=== PATIENT | male | born 1975 | race Caucasian/White ===

== ENCOUNTER → 2017-09-12 | Outpatient (CLI) | payer OTHER ==
[2017-09-12 10:19] LABS: Basophils % (A) 0 %; Eosinophils # (A) 0.5 k/uL (0-0.7); Eosinophils % (A) 6 %; HCT 49.2 % (39.0-53.0); HGB 16.3 gm/dL (13.0-17.5); Lymphocytes # (A) 1.8 k/uL (1.0-4.8); Lymphocytes % (A) 21 %; MCH 32.1 pg (25.0-35.0); MCHC 33.2 g/dL (31.0-37.0); MCV 96.8 fL (80.0-100.0); Mean Platelet Volume 6.8; Monocytes # (A) 0.5 k/uL (0-1.0); Monocytes % (A) 6 %; Neutrophils # (A) 5.5 k/uL (1.3-7.7); Neutrophils % (A) 64 %; Platelet Count 207 k/uL (150-450); RBC 5.08 m/uL (4.30-5.90); RDW 12.3 % (11.5-15.5); WBC 8.5 k/uL (3.8-10.6)
[2017-09-12 10:44] LABS: ALT 41 U/L (21-72); AST 32 U/L (17-59); Albumin 4.8 g/dL (3.5-5.0); Alkaline Phosphatase 103 U/L (38-126); Anion Gap 9 mmol/L; Blood Urea Nitrogen 10 mg/dL (9-20); Calcium 9.9 mg/dL (8.4-10.2); Carbon Dioxide 27 mmol/L (22-30); Chloride 103 mmol/L (98-107); Cholesterol 261 mg/dL (<200); Glucose 93 mg/dL (74-99); HDL Cholesterol 94 mg/dL (40-60); LDL Cholesterol,Calculated 153 mg/dL (0-99); Potassium 4.3 mmol/L (3.5-5.1); Sodium 139 mmol/L (137-145); Total Bilirubin 1.7 mg/dL (0.2-1.3); Total Protein 7.5 g/dL (6.3-8.2); Triglycerides 71 mg/dL (<150)
[2017-09-12 17:23] LABS: Vitamin D 25 Hydroxy 32.5 ng/mL (30.0-100.0)
[2017-09-12 20:15] LABS: Folate, Serum 13.9 ng/mL
[2017-09-12 20:19] LABS: Hemoglobin A1C 5.2 % (4.0-6.0)
== END | disposition home or self-care (01) ==
LOC: LABWHC1 09:54
PROVIDERS: ATTEND Nurse Practitioner Family
DX: R01.1 Cardiac murmur, unspecified (principal); F17.200 Nicotine dependence, unspecified, uncomplicated; Z82.49 Family history of ischemic heart disease and other diseases of the circulatory system
CPT/HCPCS: 36415; 80053; 80061; 82306; 82607; 82746; 83036; 84443; 85025

== ENCOUNTER → 2017-09-25 | Outpatient (CLI) | payer OTHER ==
--- NOTE | 2017-09-26 07:20 | ECHOF ---
Referral Reason:R01.1 Systolic Murmur MEASUREMENTS -------- HEIGHT: 182.9 cm WEIGHT: 85.7 kg BP: 165/88 RVIDd: 2.4 cm (< 3.3) IVSd: 1.0 cm (0.6 - 1.1) LVIDd: 5.2 cm (3.9 - 5.3) LVPWd: 1.0 cm (0.6 - 1.1) IVSs: 1.4 cm LVIDs: 3.6 cm LVPWs: 1.6 cm LA Diam: 3.6 cm (2.7 - 3.8) Ao Diam: 3.6 cm (2.0 - 3.7) AV Cusp: 2.3 cm (1.5 - 2.6) MV EXCURSION: 22.777 mm (> 18.000) MV EF SLOPE: 235 mm/s (70 - 150) EPSS: 0.5 cm MV E Zechariah: 0.84 m/s MV DecT: 264 ms MV A Zechariah: 0.58 m/s MV E/A Ratio: 1.44 RAP: 5.00 mmHg RVSP: 23.58 mmHg FINDINGS -------- Sinus rhythm. This was a technically excellent study. The left ventricular size is normal. Left ventricular wall thickness is normal. Overall left vent ricular systolic function is normal with, an EF between 60 - 65 %. The right ventricle is normal in size. The left atrial size is normal. The right atrium is normal in size. The aortic valve is trileaflet and appears structurally normal. Trace amount of aortic regurgitatio n. There is trace mitral regurgitation. Mild tricuspid regurgitation present. Right ventricular systolic pressure is normal at < 35 mmHg. There is no pulmonic regurgitation present. The aortic root size is normal. Normal inferior vena cava with normal inspiratory collapse consistent with estimated right atrial pre ssure of 5 mmHg. There is no pericardial effusion. CONCLUSIONS -------- 1. Sinus rhythm. 2. This was a technically excellent study. 3. The left ventricular size is normal. 4. Left ventricular wall thickness is normal. 5. Overall left ventricular systolic function is normal with, an EF between 60 - 65 %. 6. The right ventricle is normal in size. 7. The left atrial size is normal. 8. The right atrium is normal in size. 9. The aortic valve is trileaflet and appears structurally normal. 10. Trace amount of aortic regurgitation. 11. There is trace mitral regurgitation. 12. Mild tricuspid regurgitation present. 13. Right ventricular systolic pressure is normal at < 35 mmHg. 14. There is no pulmonic regurgitation present. 15. The aortic root size is normal. 16. Normal inferior vena cava with normal inspiratory collapse consistent with estimated right atrial pressure of 5 mmHg. 17. There is no pericardial effusion. ETHICS MANAGER: Caitlin Raymundo RDCS
== END ==
LOC: RADECHMAIN 14:46
PROVIDERS: ATTEND Family Medicine
DX: I08.1 Rheumatic disorders of both mitral and tricuspid valves (principal)
CPT/HCPCS: 93306

== ENCOUNTER 2018-05-11 17:46 | Emergency (ER) | payer OTHER ==
[2018-05-11 19:17] VITALS: BP 132/87; PULSE 88; RESP 18; TEMP 98.3
--- NOTE | 2018-05-11 20:43 | ED ---
General Adult HPI - General Chief complaint: Skin/Abscess/Foreign Body Stated complaint: Rash on Rt leg Time Seen by Provider: 05/11/18 19:32 Source: patient, RN notes reviewed, old records reviewed Mode of arrival: ambulatory Limitations: no limitations - History of Present Illness Initial comments: 43-year-old male patient upper and past medical history presents ED after encountering a painful rash on his right knee. Patient reports that he wore a new pair of pants that rubbed on the posterior, popliteal aspect of his right knee causing a red erythematous painful rash. Patient states that symptoms have been present for approximately 2 days. Patient denies any other complaints. Patient denies chest pain, shortness breath, abdominal pain, nausea vomiting diarrhea, fevers chills. Systemic: Pt denies fatigue, myalgia, fever/chills. Pt denies weakness, night sweats, weight loss. Neuro: Pt denies headache, visual disturbances, syncope or pre-syncope. HEENT: Pt denies ocular discharge or irritation, otalgia, rhinorrhea, pharyngitis or notable lymphadenopathy. Cardiopulmonary: Pt denies chest pain, SOB, heart palpitations, dyspnea on exert ion. Abdominal/GI: Pt denies abdominal pain, n/v/d. : Pt denies dysuria, burning w/ urination, frequency/urgency. Denies new onset urinary or bowel incontinence. MSK: Pt denies myalgia, loss of strength or function in extremities. Neuro: Pt denies new onset weakness, paresthesias. - Related Data Previous Rx's Medication Instructions Recorded Albuterol Inhaler [Ventolin Hfa 1 - 2 puff INHALATION Q4-6H PRN #1 08/28/14 Inhaler] inhaler predniSONE 50 mg PO DAILY #5 tab 08/28/14 Clotrimazole/Betamethasone Dip 1 applic TOPICAL Q12HR 7 Days #1 05/11/18 [Lotrisone Cream] bottle Allergies Allergy/AdvReac Type Severity Reaction Status Date / Time acetaminophen [From Vicodin] Allergy Rash/Hives Verified 05/11/18 19:17 hydrocodone bitartrate Allergy Rash/Hives Verified 05/11/18 19:17 [From Vicodin] Penicillins Allergy Rash/Hives Verified 05/11/18 19:17 Review of Systems ROS Statement: Those systems with pertinent positive or pertinent negative responses have been documented in the HPI. ROS Other: All systems not noted in ROS Statement are negative. Past Medical History Past Medical History: No Reported History History of Any Multi-Drug Resistant Organisms: MRSA Date of last positivie culture/infection: 2001 MDRO Source:: left axilla Past Surgical History: No Surgical Hx Reported Past Psychological History: No Psychological Hx Reported Smoking Status: Current every day smoker Past Alcohol Use History: Occasional Past Drug Use History: None Reported General Exam - General Exam Comments Initial Comments: Constitutional: NAD, AOX3, Pt has pleasant affect. HEENT: NC/AT, trachea midline, neck supple, no lymphadenopathy. Posterior pharynx non erythematous, without exudates. External ears appear normal, without discharge. Mucous membranes moist. Eyes PERRLA, EOM intact. There is no scleral icterus. No pallor noted. Cardiopulmonary: RRR, no murmurs, rubs or gallops, no JVD noted. Lungs CTAB in anterior and posterior garcia. No peripheral edema. Abdominal exam: Abdomen soft and non-distended. Abdomen non-tender to palpation in all 4 quadrants. Bowel sounds active in LLQ. No hepatosplenomegaly. No ecchymosis Neuro: CN II-XII grossly intact. No nuchal rigidity. MSK: No posterior calf tenderness bilaterally, homans sign negative bilaterally. Posterior tibialis and radial pulse +2 bilaterally. Sensation intact in upper and lower extremities. Full active ROM in upper and lower extremities, 5/5 stregnth. Derm: Erythematous, mildly tender rash noted on posterior aspect of R knee. Limitations: no limitations Course Vital Signs 05/11/18 19:15 Temperature 98.3 F Pulse Rate 88 Respiratory 18 Rate Blood Pressure 132/87 O2 Sat by Pulse 99 Oximetry Medical Decision Making - Medical Decision Making 43-year-old male patient upper and past medical history presents ED after encountering a painful rash on his right knee. Patient reports that he wore a new pair of pants that rubbed on the posterior, popliteal aspect of his right knee causing a red erythematous painful rash. Patient states that symptoms have been present for approximately 2 days. Patient denies any other complaints. Patient denies chest pain, shortness breath, abdominal pain, nausea vomiting diarrhea, fevers chills. Pt VSS, afebrile. Physical exam displayed: Erythematous, mildly tender rash noted on posterior aspect of R knee. Etiology of rash is likely abrasion vs contact dermatitis. Pt to be rx lotrisone cream to use for for 1 week. Pt to f/u with PCP in 1-2 days. Pt to return to ER if conditions worsen in anyway. Case discussed with Dr. Marie. Disposition Clinical Impression: Contact dermatitis Disposition: HOME SELF-CARE Condition: Stable Instructions (If sedation given, give patient instructions): Contact Dermatitis (ED) Additional Instructions: Patient to adhere to previously discussed treatment plan and will take medication(s) as directed. Patient to follow up with PCP in 1-2 days. Patient to return to ED if symptoms do not improve. Please use daily application Lotrisone cream twice a day for 1 week. Please follow-up with primary care provider in 1-2 days. Please return to ER if condition worsens or new symptoms develop. Prescriptions: Clotrimazole/Betamethasone Dip [Lotrisone Cream] 1 applic TOPICAL Q12HR 7 Days #1 bottle Is patient prescribed a controlled substance at d/c from ED?: No Referrals: Candis Joseph FNPBC [Primary Care Provider] - 1-2 days
== END 2018-05-11 20:51 | disposition home or self-care (01) ==
LOC: EC 17:46
DX: L25.9 Unspecified contact dermatitis, unspecified cause (principal); F17.200 Nicotine dependence, unspecified, uncomplicated; Z88.0 Allergy status to penicillin; Z88.5 Allergy status to narcotic agent; Z88.6 Allergy status to analgesic agent; Z86.14 Personal history of Methicillin resistant Staphylococcus aureus infection
CPT/HCPCS: 99283

== ENCOUNTER 2018-06-03 20:41 | Emergency (ER) | payer OTHER ==
[2018-06-03 20:44] VITALS: TEMP 98.2
[2018-06-03] MEDS ORDERED: methylPREDNISolone SOD SUCCI 125 MG/2 ML VIAL IV STA (21:52)
[2018-06-03] MEDS ORDERED: FAMOTIDINE 20 MG/2 ML VIAL IV STA (21:52)
[2018-06-03] MEDS ORDERED: diphenhydrAMINE 50 MG/ML 1 ML VIAL IVP STA (21:52)
--- NOTE | 2018-06-03 22:22 | ED ---
General Adult HPI - General Source: patient, RN notes reviewed, old records reviewed Mode of arrival: ambulatory Limitations: no limitations <Leonidas Corona - Last Filed: 06/03/18 22:35> <Umm Bedolla - Last Filed: 06/04/18 22:07> - General Chief complaint: Skin/Abscess/Foreign Body Stated complaint: Rash Time Seen by Provider: 06/03/18 21:42 - History of Present Illness Initial comments: 43-year-old male patient with passed medical history of prior contact dermatitis presents to ED with rash for 2 days. Patient reports that he recently changed his body wash. Patient reports that the data EKG displayed while she began to develop a erythematous, pruritic, papular rash on his torso and back. Patient states that he has taken 1 or 2 Benadryl for this which has provided some relief. Patient has any other complaints. Patient denies any difficulty breathing, rash on face or mucosal surfaces, rash on palmar soles, nausea vomiting diarrhea, abdominal pain, chest pain. Systemic: Pt denies fatigue, myalgia, fever/chills. Pt denies weakness, night sweats, weight loss. Neuro: Pt denies headache, visual disturbances, syncope or pre-syncope. HEENT: Pt denies ocular discharge or irritation, otalgia, rhinorrhea, pharyngitis or notable lymphadenopathy. Cardiopulmonary: Pt denies chest pain, SOB, heart palpitations, dyspnea on exertion. Abdominal/GI: Pt denies abdominal pain, n/v/d. : Pt denies dysuria, burning w/ urination, frequency/urgency. Denies new onset urinary or bowel incontinence. MSK: Pt denies myalgia, loss of strength or function in extremities. Neuro: Pt denies new onset weakness, paresthesias. (Leonidas Corona) - Related Data Previous Rx's Medication Instructions Recorded Albuterol Inhaler [Ventolin Hfa 1 - 2 puff INHALATION Q4-6H PRN #1 08/28/14 Inhaler] inhaler predniSONE 50 mg PO DAILY #5 tab 08/28/14 Clotrimazole/Betamethasone Dip 1 applic TOPICAL Q12HR 7 Days #1 05/11/18 [Lotrisone Cream] bottle diphenhydrAMINE [Benadryl] 50 mg PO TID PRN #20 capsule 06/03/18 Allergies Allergy/AdvReac Type Severity Reaction Status Date / Time acetaminophen [From Vicodin] Allergy Rash/Hives Verified 06/03/18 20:45 amoxicillin Allergy Rash/Hives Verified 06/03/18 20:45 hydrocodone bitartrate Allergy Rash/Hives Verified 06/03/18 20:45 [From Vicodin] Penicillins Allergy Rash/Hives Verified 06/03/18 20:45 Review of Systems ROS Other: All systems not noted in ROS Statement are negative. <Leonidas Corona - Last Filed: 06/03/18 22:35> ROS Other: All systems not noted in ROS Statement are negative. <Umm Bedolla - Last Filed: 06/04/18 22:07> ROS Statement: Those systems with pertinent positive or pertinent negative responses have been documented in the HPI. Past Medical History Past Medical History: No Reported History History of Any Multi-Drug Resistant Organisms: MRSA Date of last positivie culture/infection: 2001 MDRO Source:: left axilla Past Surgical History: No Surgical Hx Reported Past Psychological History: No Psychological Hx Reported Smoking Status: Current every day smoker Past Alcohol Use History: Occasional Past Drug Use History: None Reported <Leonidas Corona - Last Filed: 06/03/18 22:35> General Exam Limitations: no limitations <Leonidas Corona - Last Filed: 06/03/18 22:35> - General Exam Comments Initial Comments: Constitutional: NAD, AOX3, Pt has pleasant affect. HEENT: NC/AT, trachea midline, neck supple, no lymphadenopathy. Posterior pharynx non erythematous, without exudates. External ears appear normal, without discharge. Mucous membranes moist. Eyes PERRLA, EOM intact. There is no scleral icterus. No pallor noted. Cardiopulmonary: RRR, no murmurs, rubs or gallops, no JVD noted. Lungs CTAB in anterior and posterior garcia. No peripheral edema. Abdominal exam: Abdomen soft and non-distended. Abdomen non-tender to palpation in all 4 quadrants. Bowel sounds active in LLQ. No hepatosplenomegaly. No ecchymosis Neuro: CN II-XII grossly intact. No nuchal rigidity. MSK: No posterior calf tenderness bilaterally, homans sign negative bilaterally. Posterior tibialis and radial pulse +2 bilaterally. Sensation intact in upper and lower extremities. Full active ROM in upper and lower extremities, 5/5 stregnth. Derm: Maculopapular rash noted on anterior and posterior torso. Spares palms and soles. Suh face mucosal surfaces. (Leonidas Corona) Course Vital Signs 06/03/18 06/03/18 20:42 22:26 Temperature 98.2 F Pulse Rate 98 78 Respiratory 20 18 Rate Blood Pressure 181/104 150/92 O2 Sat by Pulse 99 99 Oximetry Medical Decision Making <Leonidas Corona - Last Filed: 06/03/18 22:35> <Umm Bedolla - Last Filed: 06/04/18 22:07> - Medical Decision Making 43-year-old male patient with passed medical history of prior contact dermatitis presents to ED with rash for 2 days. Patient reports that he recently changed his body wash. Patient reports that the data EKG displayed while she began to develop a erythematous, pruritic, papular rash on his torso and back. Patient states that he has taken 1 or 2 Benadryl for this which has provided some relief. Patient has any other complaints. Patient denies any difficulty breathing, rash on face or mucosal surfaces, rash on palmar soles, nausea vomiting diarrhea, abdominal pain, chest pain. Pt VSS displayed mild hypertension. Physical exam displayed: Maculopapular rash noted on anterior and posterior torso. Spares palms and soles. Suh face mucosal surfaces. Pt dx with contact dermatitis. Pt to stop using soap. Pt was administered one dose of Benadryl, steroid, Pepcid. Patient to be discharged with prescription for Benadryl. Patient follow up with pcp in 1-2 days. Patient to return to ER if condition worsens in anyway. Case discussed with Dr. Bedolla. (Leonidas Corona) I was available for consultation in the emergency department. The history and physical exam were done by the midlevel provider. I was consulted for this patient's care. I reviewed the case with the midlevel provider and based on their presentation of the patient, I agree with the assessment, medical decision making and plan of care as documented. Chart was dictated using [employer] dictation software. Attempts were made to correct any dictation errors however some typographical errors may persist. (Umm Bedolla) Disposition Is patient prescribed a controlled substance at d/c from ED?: No <Leonidas Corona - Last Filed: 06/03/18 22:35> <Umm Bedolla - Last Filed: 06/04/18 22:07> Clinical Impression: Rash, Contact dermatitis Disposition: HOME SELF-CARE Condition: Stable Instructions (If sedation given, give patient instructions): Contact Dermatitis (ED) Additional Instructions: Patient to adhere to previously discussed treatment plan and will take medication(s) as directed. Patient to follow up with PCP in 1-2 days. Patient to return to ED if symptoms do not improve. please take Benadryl as needed for rash. Please stop using body wash. Please follow-up with primary care provider in 1-2 days. Prescriptions: diphenhydrAMINE [Benadryl] 50 mg PO TID PRN #20 capsule PRN Reason: rash Referrals: Ashlee Colin MD [Primary Care Provider] - 1-2 days
[2018-06-03 22:26] VITALS: BP 150/92; PULSE 78; RESP 18
== END 2018-06-03 22:45 | disposition home or self-care (01) ==
LOC: EC 20:41
DX: L25.9 Unspecified contact dermatitis, unspecified cause (principal); F17.200 Nicotine dependence, unspecified, uncomplicated; Z86.14 Personal history of Methicillin resistant Staphylococcus aureus infection; Z88.6 Allergy status to analgesic agent; Z88.5 Allergy status to narcotic agent; Z88.0 Allergy status to penicillin
CPT/HCPCS: 99283; 96374; 96375 ×2; J1200; J2930

== ENCOUNTER 2019-08-13 17:28 | Emergency (ER) | payer OTHER ==
--- NOTE | 2019-08-13 18:40 | XR ---
EXAMINATION TYPE: XR foot complete RT DATE OF EXAM: 08/13/2019 COMPARISON: NONE HISTORY: 44-year-old male stepped on a nail, puncture TECHNIQUE: 3 views FINDINGS: Bipartite fibular sesamoid. No acute fracture, subluxation, or dislocation seen. Os peroneum noted. S oft tissue swelling along the ball of the foot. No soft tissue air or retained radiopaque foreign bod y is clearly identified. IMPRESSION: Prominent soft tissue swelling along the ball of the foot. No retained radiopaque foreign body identi fied. No acute osseous abnormality seen.
[2019-08-13] MEDS ORDERED: DIPH,PERTUS(ACELL)TETVAC-LF 0.5 ML VIAL IM ONE (18:47)
[2019-08-13] MEDS ORDERED: CEPHALEXIN 500MG STARTER PACK 4 CAP BTL PO STA (18:48)
--- NOTE | 2019-08-13 18:48 | ED ---
Lower Extremity Injury HPI - General Chief Complaint: Extremity Injury, Lower Stated Complaint: stepped on nail Time Seen by Provider: 08/13/19 17:36 Source: patient Mode of arrival: ambulatory Limitations: no limitations - History of Present Illness Initial Comments: 44-year-old male presenting today for chief complaint of puncture wound to right foot that occurred today. States that he stepped on a nail that went through his right shoe and into the forefoot. HE states he cleaned the area well, but needed a tetanus. Patient states this occurred just prior to arrival. Denies DM. Beata additional complaints. Patient appears well on arrival no signs of acute distress. - Related Data Previous Rx's Medication Instructions Recorded Albuterol Inhaler (Mhu) [Ventolin 1 - 2 puff INHALATION Q4-6H PRN #1 08/28/14 Hfa Inhaler (Mhu)] inhaler predniSONE 50 mg PO DAILY #5 tab 08/28/14 Clotrimazole/Betamethasone Dip 1 applic TOPICAL Q12HR 7 Days #1 05/11/18 [Lotrisone Cream] bottle diphenhydrAMINE [Benadryl] 50 mg PO TID PRN #20 capsule 06/03/18 Cephalexin [Keflex] 500 mg PO Q6HR 5 Days #20 cap 08/13/19 Ciprofloxacin HCl 500 mg PO BID 5 Days #10 tab 08/13/19 Allergies Allergy/AdvReac Type Severity Reaction Status Date / Time acetaminophen [From Vicodin] Allergy Rash/Hives Verified 08/13/19 17:30 amoxicillin Allergy Rash/Hives Verified 08/13/19 17:30 hydrocodone bitartrate Allergy Rash/Hives Verified 08/13/19 17:30 [From Vicodin] Penicillins Allergy Rash/Hives Verified 08/13/19 17:30 Review of Systems ROS Statement: Those systems with pertinent positive or pertinent negative responses have been documented in the HPI. ROS Other: All systems not noted in ROS Statement are negative. Past Medical History Past Medical History: No Reported History History of Any Multi-Drug Resistant Organisms: MRSA Date of last positivie culture/infection: 2001 MDRO Source:: left axilla Past Surgical History: No Surgical Hx Reported Past Psychological History: No Psychological Hx Reported Smoking Status: Current every day smoker Past Alcohol Use History: Occasional Past Drug Use History: None Reported General Exam - General Exam Comments Initial Comments: General: The patient is awake and alert, in no distress Eye: Pupils are equal, round and reactive to light, extra-ocular movements are intact. No nystagmus. There is normal conjunctiva bilaterally. No signs of icterus. Musculoskeletal: Normal ROM, no tenderness. Strength 5/5. Sensation intact. DP pulses equal bilaterally 2+. Cannot identify the exact puncture but there is tenderness to palpation of forefoot. Neurological: A&O x 3. CN II-XII intact grossly, There are no obvious motor or sensory deficits. Coordination appears grossly intact. Speech is normal. Skin: Skin is warm and dry and no rashes or lesions are noted. Psychiatric: Cooperative, appropriate mood & affect, normal judgment. Limitations: no limitations Course Vital Signs 08/13/19 08/13/19 17:31 19:16 Temperature 98.9 F 98.1 F Pulse Rate 98 92 Respiratory 18 16 Rate Blood Pressure 111/62 116/68 O2 Sat by Pulse 97 98 Oximetry Medical Decision Making - Medical Decision Making 44yo male presenting to the ER today for cc of puncture wound right foot. Through soul of shoe. Discussed pseudomonas concern and black box warning with fluoroquinolones which are in adequate oral antibiotic to prevent pseudomonas infection. I discussed the risk of infection benefits versus risk of medical Louann. At this time patient elected to go forward with preventative medication and is aware of the cardiac/vascular/tendon side effects that could result in injury or as well as risk of infection and sepsis/> Patient discharged appearing well with keflex and ciprofloxacin preventative antibiotics for puncture would. Disposition Clinical Impression: Puncture wound of right foot Disposition: HOME SELF-CARE Condition: Good Instructions (If sedation given, give patient instructions): Puncture Wound (ED) Additional Instructions: Please use medication as discussed. Please follow-up with family doctor in the next 2 days. Please return to emergency room if the symptoms increase or worsen or for any other concerns. Prescriptions: Cephalexin [Keflex] 500 mg PO Q6HR 5 Days #20 cap Is patient prescribed a controlled substance at d/c from ED?: No Referrals: Ashlee Colin MD [Primary Care Provider] - 1-2 days Time of Disposition: 18:48
[2019-08-13 19:17] VITALS: BP 116/68; PULSE 92; RESP 16; TEMP 98.1
== END 2019-08-13 19:15 | disposition home or self-care (01) ==
LOC: EC 17:28
DX: S91.331A Puncture wound without foreign body, right foot, initial encounter (principal); F17.200 Nicotine dependence, unspecified, uncomplicated; Z23 Encounter for immunization; Z88.0 Allergy status to penicillin; Z88.5 Allergy status to narcotic agent; Z88.6 Allergy status to analgesic agent; W45.0XXA Nail entering through skin, initial encounter
CPT/HCPCS: 90471; 90715; 99283

== ENCOUNTER 2021-07-24 16:17 | Emergency (ER) | payer OTHER, BC ==
[2021-07-24 16:37] VITALS: BP 125/71; PULSE 81; RESP 20; TEMP 98.3
[2021-07-24] MEDS ORDERED: LIDOCAINE 1% INJ 10MG/ML (5 ML VIAL-PF) SQ ONE (17:12)
--- NOTE | 2021-07-24 18:29 | ED ---
General Adult HPI - General Chief complaint: Extremity Injury, Upper Stated complaint: Swollen Finger Time Seen by Provider: 07/24/21 17:03 Source: patient Mode of arrival: ambulatory Limitations: no limitations - History of Present Illness Initial comments: Patient is a 46-year-old male who presents for evaluation of finger swelling. Patient states he picked a hangnail of his left pointer finger yesterday and woke up with swelling and pain in the area today. Patient denies fever, chills, and other concerns. - Related Data Previous Rx's Medication Instructions Recorded Albuterol Inhaler (Mhu) [Ventolin 1 - 2 puff INHALATION Q4-6H PRN #1 08/28/14 Hfa Inhaler (Mhu)] inhaler predniSONE 50 mg PO DAILY #5 tab 08/28/14 Clotrimazole/Betamethasone Dip 1 applic TOPICAL Q12HR 7 Days #1 05/11/18 [Lotrisone Cream] bottle diphenhydrAMINE [Benadryl] 50 mg PO TID PRN #20 capsule 06/03/18 Cephalexin [Keflex] 500 mg PO Q6HR 5 Days #20 cap 08/13/19 Ciprofloxacin HCl 500 mg PO BID 5 Days #10 tab 08/13/19 Sulfamethox-Tmp 800-160Mg [Bactrim 1 each PO Q12HR 5 Days #10 tab 07/24/21 Ds] Allergies Allergy/AdvReac Type Severity Reaction Status Date / Time acetaminophen [From Vicodin] Allergy Rash/Hives Verified 07/24/21 16:36 amoxicillin Allergy Rash/Hives Verified 07/24/21 16:36 hydrocodone bitartrate Allergy Rash/Hives Verified 07/24/21 16:36 [From Vicodin] Penicillins Allergy Rash/Hives Verified 07/24/21 16:36 Review of Systems ROS Statement: Those systems with pertinent positive or pertinent negative responses have been documented in the HPI. ROS Other: All systems not noted in ROS Statement are negative. Past Medical History Past Medical History: No Reported History History of Any Multi-Drug Resistant Organisms: MRSA Date of last positivie culture/infection: 2001 MDRO Source:: left axilla Past Surgical History: No Surgical Hx Reported Past Psychological History: No Psychological Hx Reported Smoking Status: Current every day smoker Past Alcohol Use History: Occasional Past Drug Use History: None Reported General Exam Limitations: no limitations General appearance: alert, in no apparent distress Head exam: Present: atraumatic, normocephalic, normal inspection Eye exam: Present: normal appearance, PERRL, EOMI. Absent: scleral icterus, conjunctival injection, periorbital swelling Neck exam: Present: normal inspection, full ROM Respiratory exam: Present: normal lung sounds bilaterally. Absent: respiratory distress, wheezes, rales, rhonchi, stridor Cardiovascular Exam: Present: regular rate, normal rhythm, normal heart sounds. Absent: systolic murmur, diastolic murmur, rubs, gallop, clicks GI/Abdominal exam: Present: soft, normal bowel sounds. Absent: distended, tenderness, guarding, rebound, rigid Extremities exam: Present: other (left pointer finger: paronychia with fluctuance proximally and laterally. no induration ) Psychiatric exam: Present: normal affect, normal mood Skin exam: Present: warm, dry, intact, normal color. Absent: rash Course Vital Signs 07/24/21 16:35 Temperature 98.3 F Pulse Rate 81 Respiratory 20 Rate Blood Pressure 125/71 O2 Sat by Pulse 97 Oximetry Procedures - Incision & Drainage Site: other (Left pointer finger) Anesthetic Used: lidocaine 1% I&D Cleaning Method: Alcohol Wipe Scalpel Used: #11 I&D Drainage Obtained: Pus, Blood Patient Tolerated Procedure: well, no complications Medical Decision Making - Medical Decision Making This is a 46-year-old male who presents with swelling and pain of left pointer finger. Thorough history and examination were performed. Patient has paronychia with fluctuance over the lateral and proximal nail bed. The wound was cleaned thoroughly and abscess was drained successfully. Patient tolerated the procedure well without complication. Patient will be discharged with Keflex prescription. Wound education was provided. Patient was instructed to keep the dressing over the wound for continuous drainage with warm compress throughout the day. Return parameters discussed. Patient verbalizes understanding and is agreeable to this plan Dr. Marie is my attending. Disposition Clinical Impression: Paronychia, Abscess Disposition: HOME SELF-CARE Condition: Good Instructions (If sedation given, give patient instructions): Abscess (ED) Additional Instructions: Please take antibiotic as directed. Please keep wound covered for 5 days. You may uncover wound 4 times a day and apply warm compress for 10 minutes each session with gentle pressing of the area to increase drainage. Follow-up with primary care provider in one to 2 days. Return to the emergency department if you experience new, concerning, or worsening symptoms. Prescriptions: Sulfamethox-Tmp 800-160Mg [Bactrim Ds] 1 each PO Q12HR 5 Days #10 tab Is patient prescribed a controlled substance at d/c from ED?: No Referrals: Ashlee Colin MD [Primary Care Provider] - 1-2 days Time of Disposition: 18:29
== END 2021-07-24 18:45 | disposition home or self-care (01) ==
LOC: EC 16:17
DX: R22.31 Localized swelling, mass and lump, right upper limb (principal)

== ENCOUNTER 2023-09-05 13:13 | Emergency (ER) | payer OTHER ==
[2023-09-05 13:22] VITALS: RESP 18; TEMP 98
[2023-09-05] MEDS: IBUPROFEN 600 MG TAB PO STA (13:38)
[2023-09-05] MEDS: DIPH,PERTUS(ACELL)TETVAC-LF 0.5 ML VIAL IM ONE (13:39)
[2023-09-05] MEDS: TOPICAL SKIN ADHESIVE 1 EACH AMP TOPICAL ONE (13:39)
--- NOTE | 2023-09-05 13:42 | ED ---
Wound/Laceration HPI - General Chief Complaint: Wound/Laceration Stated Complaint: R leg injury Time Seen by Provider: 09/05/23 13:40 Source: patient, RN notes reviewed Mode of arrival: ambulatory Limitations: no limitations - History of Present Illness Initial Comments: 48 year old male presenting to the ER with a cheif complaint of laceration. Patient was building a deck and when lifting the deck to apply support screws the dock accidentally fell landing on his right escalera. Patient states he has a laceration to his right escalera. He states bleeding is controlled with a pressure wrap at this time. Tetanus status unknown. He denies any other injuries or complaints. - Related Data Previous Rx's Medication Instructions Recorded Albuterol Inhaler [Ventolin Hfa 1 - 2 puff INHALATION Q4-6H PRN #1 08/28/14 Inhaler] inhaler predniSONE 50 mg PO DAILY #5 tab 08/28/14 Clotrimazole/Betamethasone Dip 1 applic TOPICAL Q12HR 7 Days #1 05/11/18 [Lotrisone Cream] bottle diphenhydrAMINE [Benadryl] 50 mg PO TID PRN #20 capsule 06/03/18 Cephalexin [Keflex] 500 mg PO Q6HR 5 Days #20 cap 08/13/19 Ciprofloxacin HCl 500 mg PO BID 5 Days #10 tab 08/13/19 Sulfamethox-Tmp 800-160Mg [Bactrim 1 each PO Q12HR 5 Days #10 tab 07/24/21 Ds] Allergies Allergy/AdvReac Type Severity Reaction Status Date / Time acetaminophen [From Vicodin] Allergy Rash/Hives Verified 09/05/23 13:22 amoxicillin Allergy Rash/Hives Verified 09/05/23 13:22 hydrocodone bitartrate Allergy Rash/Hives Verified 09/05/23 13:22 [From Vicodin] Penicillins Allergy Rash/Hives Verified 09/05/23 13:22 Review of Systems ROS Statement: Those systems with pertinent positive or pertinent negative responses have been documented in the HPI. ROS Other: All systems not noted in ROS Statement are negative. Past Medical History Past Medical History: No Reported History History of Any Multi-Drug Resistant Organisms: MRSA Date of last positivie culture/infection: 2001 MDRO Source:: left axilla Past Surgical History: No Surgical Hx Reported Past Psychological History: No Psychological Hx Reported Smoking Status: Current every day smoker Past Alcohol Use History: Occasional Past Drug Use History: None Reported General Exam Limitations: no limitations General appearance: alert, in no apparent distress Respiratory exam: Present: normal lung sounds bilaterally. Absent: respiratory distress, wheezes, rales, rhonchi, stridor Cardiovascular Exam: Present: regular rate, normal rhythm, normal heart sounds. Absent: systolic murmur, diastolic murmur, rubs, gallop, clicks Extremities exam: Present: tenderness (Right distal escalera. There is a 1 cm abrasion to escalera. No active bleeding. Palpable PT and DP pulses. Sensation intact. Patient has full active range of motion.) Neurological exam: Present: alert, oriented X3, CN II-XII intact Skin exam: Present: warm, dry, intact, normal color. Absent: rash Course Vital Signs 09/05/23 09/05/23 13:20 14:21 Temperature 98 F Pulse Rate 80 78 Respiratory 18 18 Rate Blood Pressure 111/74 120/74 O2 Sat by Pulse 99 99 Oximetry Procedures - Laceration Laceration #1 Consent Obtained: verbal consent Indication: laceration Site: lower extremity Size (cm): 1 Description: linear Depth: simple, single layer Pre-repair: wound explored, irrigated extensively, deep structures intact Type of Sutures: other (dermal glue) Patient Tolerated Procedure: well Medical Decision Making - Medical Decision Making Was pt. sent in by a medical professional or institution ([facility] Solorio, [employer], urgent care, hospital, or fdc...) When possible be specific @ -No Did you speak to anyone other than the patient for history (EMS, parent, family, police, friend...)? What history was obtained from this source @ -No Did you review nursing and triage notes (agree or disagree)? Why? @ -I reviewed and agree with nursing and triage notes Were old charts reviewed (outside hosp., previous admission, EMS record, old EKG, old radiological studies, urgent care reports/EKG's, fdc records)? Report findings @ -No old charts were reviewed Differential Diagnosis (chest pain, altered mental status, abdominal pain women, abdominal pain men, vaginal bleeding, weakness, fever, dyspnea, syncope, headache, dizziness, GI bleed, back pain, seizure, CVA, palpatations, mental health, musculoskeletal)? @ -Differential Musculoskeletal: Muscular strain, contusion, ligament sprain, fracture, arthritis, septic arthritis, bursitis, cellulitis, muscle spasm, nerve compression, DVT, arterial occlusion, herpes zoster, electrolyte abnormality, tumor.... This is not meant to be in all inclusive list EKG interpreted by me (3pts min.). @ -None X-rays interpreted by me (1pt min.). @ -Right tib-fib x-rays interpreted by me negative for acute osseous process. CT interpreted by me (1pt min.). @ -None done U/S interpreted by me (1pt. min.). @ -None done What testing was considered but not performed or refused? (CT, X-rays, U/S, labs)? Why? @ -None What meds were considered but not given or refused? Why? @ -None Did you discuss the management of the patient with other professionals (professionals i.e. , PA, [employer], lab, RT, psych nurse, social media content manager, senior contract specialist, teacher, operations officer [employer], renal case manager)? Give summary @ -No Was smoking cessation discussed for >3mins.? @ -No Was critical care preformed (if so, how long)? @ -No Were there social determinants of health that impacted care today? How? (Homelessness, low income, unemployed, alcoholism, drug addiction, transportation, low edu. Level, literacy, decrease access to med. care, [facility], r ehab)? @ -No Was there de-escalation of care discussed even if they declined (Discuss DNR or withdrawal of care, Hospice)? DNR status @ -No What co-morbidities impacted this encounter? (DM, HTN, Smoking, COPD, CAD, Cancer, CVA, ARF, Chemo, Hep., AIDS, mental health diagnosis, sleep apnea, morbid obesity)? @ -None Was patient admitted / discharged? Hospital course, mention meds given and route, prescriptions, significant lab abnormalities, going to OR and other pertinent info. @ -Discharge. 48-year-old male presented to ER with a chief complaint of laceration. History and physical exam completed. Vitals stable. Patient in no signs of acute distress and nontoxic-appearing. There is a 1 cm superficial abrasion to right escalera. No active bleeding. Right lower extremity neurovascular intact. There is tenderness to tibia. No bruising, rashes present. Tetanus updated. X-rays completed negative for acute process. Patient received by mouth for pain control in the ER. Due to abrasion not mildly gaping dermal glue used to approximate edges. Procedure note above. Return parameters discussed. Patient discharged stable condition with follow-up to PCP. Patient verbally expressed understanding agreement care plan. Case discussed with ED attending, Dr. Marie. Undiagnosed new problem with uncertain prognosis? @ -No Drug Therapy requiring intensive monitoring for toxicity (Heparin, Nitro, Insulin, Cardizem)? @ -No Were any procedures done? @ -Yes Diagnosis/symptom? @ -Abrasion/bone contusion Acute, or Chronic, or Acute on Chronic? @ -Acute Uncomplicated (without systemic symptoms) or Complicated (systemic symptoms)? @ -Uncomplicated Side effects of treatment? @ -No Exacerbation, Progression, or Severe Exacerbation? @ -No Poses a threat to life or bodily function? How? (Chest pain, [place], GA, pneumonia, PE, COPD, DKA, ARF, appy, cholecystitis, CVA, Diverticulitis, Homicidal, Suicidal, threat to staff... and all critical care pts) @ -No - Radiology Data Radiology results: report reviewed, image reviewed Disposition Clinical Impression: Abrasion, Contusion of bone Disposition: HOME SELF-CARE Condition: Stable Instructions (If sedation given, give patient instructions): Foot Contusion (ED), Skin Adhesive Care (ED) Additional Instructions: You may take otc motrin for pain control. I recommend ice and rest. Follow-up with PCP. Return to the ER for any new or worsening symptoms. Is patient prescribed a controlled substance at d/c from ED?: No Referrals: None,Stated [Primary Care Provider] - 1-2 days Time of Disposition: 14:41
--- NOTE | 2023-09-05 14:00 | XR ---
EXAMINATION TYPE: XR tibia fibula RT DATE OF EXAM: 09/05/2023 1:44 PM CLINICAL INDICATION:Male, 48 years old with history of injury; COMPARISON: None TECHNIQUE: XR tibia fibula RT; tibia/fibula was examined in AP and lateral projections. FINDINGS: No evidence of any acute osseous pathology, joint dislocation, or soft tissue swelling is n oted. Skin laceration not well appreciated. IMPRESSION: 1. No evidence of acute fracture. 2. No radiopaque foreign body.
[2023-09-05 14:22] VITALS: BP 120/74; PULSE 78
== END 2023-09-05 14:22 | disposition home or self-care (01) ==
LOC: EC 13:13
DX: S81.811A Laceration without foreign body, right lower leg, initial encounter (principal); F17.200 Nicotine dependence, unspecified, uncomplicated; Z88.0 Allergy status to penicillin; Z88.5 Allergy status to narcotic agent; Z88.1 Allergy status to other antibiotic agents; Z88.8 Allergy status to other drugs, medicaments and biological substances; Z23 Encounter for immunization; W20.8XXA Other cause of strike by thrown, projected or falling object, initial encounter; Y93.89 Activity, other specified
CPT/HCPCS: 12001; 90471; 90715; 99283

== ENCOUNTER 2024-08-08 06:33 | Emergency (ER) | payer OTHER ==
[2024-08-08 06:36] VITALS: TEMP 98.2
--- NOTE | 2024-08-08 06:55 | ED ---
Skin/Abscess/FB HPI - General Chief complaint: Skin/Abscess/Foreign Body Stated complaint: Rash on Abdomen Time Seen by Provider: 08/08/24 06:38 Source: patient, RN notes reviewed Mode of arrival: ambulatory Limitations: no limitations - History of Present Illness Initial comments: This is a 51-year-old male who presents to the emergency department for an abdominal wall abscess. Patient states that this started out as a rash on his abdomen about a week ago. He originally went to [facility] and was started on antibiotics. Unsure which antibiotic he was started on. States that yesterday it began to break open and started draining. However, it is still very swollen and painful. Denies any fevers or chills. He does have a history of MRSA as well as prior abscesses that have required surgical drainage. MD complaint: abscess/boil - Related Data Previous Rx's Medication Instructions Recorded Albuterol Inhaler [Ventolin Hfa 1 - 2 puff INHALATION Q4-6H PRN #1 08/28/14 Inhaler] inhaler predniSONE 50 mg PO DAILY #5 tab 08/28/14 Clotrimazole/Betamethasone Dip 1 applic TOPICAL Q12HR 7 Days #1 05/11/18 [Lotrisone Cream] bottle diphenhydrAMINE [Benadryl] 50 mg PO TID PRN #20 capsule 06/03/18 Cephalexin [Keflex] 500 mg PO Q6HR 5 Days #20 cap 08/13/19 Ciprofloxacin HCl 500 mg PO BID 5 Days #10 tab 08/13/19 Sulfamethox-Tmp 800-160Mg [Bactrim 1 each PO Q12HR 5 Days #10 tab 07/24/21 Ds] Cephalexin [Keflex] 500 mg PO Q6HR 10 Days #40 cap 08/08/24 Ibuprofen [Motrin] 800 mg PO Q8H PRN #30 tab 08/08/24 Sulfamethox-Tmp 800-160Mg [Bactrim 1 tab PO Q12HR 10 Days #20 tab 08/08/24 DS 800-160 mg] Allergies Allergy/AdvReac Type Severity Reaction Status Date / Time acetaminophen [From Vicodin] Allergy Rash/Hives Verified 08/08/24 06:37 amoxicillin Allergy Rash/Hives Verified 08/08/24 06:37 hydrocodone bitartrate Allergy Rash/Hives Verified 08/08/24 06:37 [From Vicodin] Penicillins Allergy Rash/Hives Verified 08/08/24 06:37 Review of Systems ROS Statement: Those systems with pertinent positive or pertinent negative responses have been documented in the HPI. ROS Other: All systems not noted in ROS Statement are negative. Past Medical History Past Medical History: No Reported History History of Any Multi-Drug Resistant Organisms: MRSA Date of last positivie culture/infection: 2001 MDRO Source:: left axilla Past Surgical History: No Surgical Hx Reported Past Psychological History: No Psychological Hx Reported Smoking Status: Current every day smoker Past Alcohol Use History: Occasional Past Drug Use History: None Reported General Exam Limitations: no limitations General appearance: alert, in no apparent distress Head exam: Present: atraumatic, normocephalic, normal inspection Respiratory exam: Present: normal lung sounds bilaterally. Absent: respiratory distress, wheezes, rales, rhonchi, stridor Cardiovascular Exam: Present: regular rate, normal rhythm GI/Abdominal exam: Present: other (Abdominal wall abscess with visible purulent material and surrounding erythema and induration) Neurological exam: Present: alert, oriented X3, CN II-XII intact Psychiatric exam: Present: normal affect, normal mood Course Vital Signs 08/08/24 08/08/24 06:35 08:55 Temperature 98.2 F 98.2 F Pulse Rate 98 74 Respiratory 18 20 Rate Blood Pressure 177/96 156/88 O2 Sat by Pulse 99 97 Oximetry Procedures - Incision & Drainage Consent Obtained: verbal consent Indication: Abscess Site: abdomen Size (cm): 1 Anesthetic Used: lidocaine 1%, with epi Amount (mLs): 5 I&D Cleaning Method: Alcohol Wipe Sterile Field Used?: Yes Scalpel Used: #11 I&D Drainage Obtained: Pus, Blood, Serous Culture Obtained?: Yes Medical Decision Making - Medical Decision Making This is a 49-year-old male who presents to the emergency department for an abdominal wound. Was pt. sent in by a medical professional or institution? @ -No Did you speak to anyone other than the patient for history? @ -No Did you review nursing and triage notes? @ -Yes, and I agree, it is accurate with regards to the patient's symptoms. Were old charts reviewed? @ -No Differential Diagnosis? @ -Abscess, cellulitis, phlegmon, hernia, allergic reaction, this is not meant to be an all-inclusive list. EKG interpreted by me (3pts min.)? @ -Not obtained X-rays interpreted by me (1pt min.)? @ -Not obtained CT interpreted by me (1pt min.)? @ -Not obtained U/S interpreted by me (1pt. min.)? @ -Not obtained What testing was considered but not performed? (CT, X-rays, U/S, labs)? Why? @ -None What meds were considered but not given? Why? @ -None Did you discuss the management of the patient with other professionals? @ -No Did you reconcile home meds? @ -No Was smoking cessation discussed for >3mins.? @ -I discussed smoking cessation for greater than 3 minutes. The risk of smoking were discussed with the patient including but not limited to risks of cancer, stroke, coronary artery disease and COPD. Also discussed with patient were multiple methods of quitting smoking. Lastly we discussed the financial cost of smoking. Was critical care preformed (if so, how long)? @ -No Were there social determinants of health that impacted care today? How? ( Homelessness, low income, unemployed, alcoholism, drug addiction, transportation, low edu. Level, literacy, decrease access to med. care, detention, rehab)? @ -No Was there de-escalation of care discussed even if they declined? (Discuss DNR or withdrawal of care, Hospice)? @ -No What co-morbidities impacted this encounter? (DM, HTN, Smoking, COPD, CAD, Cancer, CVA, Hep., AIDS, mental health diagnosis, sleep apnea, morbid obesity)? @ -Smoking Was patient admitted / discharged? @ -Discharged. Lab work demonstrates a mildly elevated CRP of 1.6 and is otherwise unremarkable. Exam demonstrates an abdominal wall abscess with active purulent drainage. Incision and drainage performed and additional material was expressed. Aerobic and anaerobic wound cultures were obtained. However, there was still a large amount of firm residual material left in the abscess that the patient did not wish to continue trying to remove. Advised that he will need to follow-up with general surgery for reevaluation and potential additional drainage. Information for follow-up was provided. When I reviewed the patient's medications it appears that he was prescribed doxycycline for this at [facility]. I was originally going to prescribe Bactrim and Keflex, however the pharmacy then called and advised that he is allergic to Bactrim and this was instead switched to clindamycin for MRSA coverage. Ibuprofen prescribed for pain control. Also advised warm compresses. Patient discharged home in stable condition. Case discussed with ED attending Dr. Fleming. Return precautions reviewed in depth, the patient is instructed to return to the emergency department with any new, worsening, or concerning symptoms. Patient verbalized understanding. Undiagnosed new problem with uncertain prognosis? @ -None Drug Therapy requiring intensive monitoring for toxicity (Heparin, Nitro, Ins ulin, Cardizem)? @ -None Were any procedures done? @ -Incision and drainage Diagnosis/symptom? @ -Abdominal wall abscess Acute, or Chronic, or Acute on Chronic? @ -Acute Uncomplicated (without systemic symptoms) or Complicated (systemic symptoms)? @ -Uncomplicated Side effects of treatment? @ -None Exacerbation, Progression, or Severe Exacerbation] @ -Not applicable Poses a threat to life or bodily function? @ -No - Lab Data Result diagrams: 08/08/24 06:58 08/08/24 06:58 Lab Results 08/08/24 08/08/24 08/08/24 Range/Units 06:58 06:58 06:58 WBC 6.10 (4.50-10.00) 10*3/uL RBC 4.55 (4.40-5.60) 10*6/uL Hgb 15.2 (13.0-17.0) g/dL Hct 43.3 (39.6-50.0) % MCV 95.2 (80.0-97.0) fL MCH 33.4 H (27.0-32.0) pg MCHC 35.1 (32.0-37.0) g/dL Plt Count 197 (140-440) 10*3/uL MPV 9.8 (9.5-12.2) fL Immature Gran % (Auto) 0.3 % Neutrophils % 56.2 % Lymphocytes % 27.7 % Monocytes % 12.1 % Eosinophils % 3.0 % Basophils % 0.7 % Immature Gran # 0.02 (0.00-0.04) 10*3/uL Neutrophils # 3.43 (1.80-7.70) 10*3/uL Lymphocytes # 1.69 (0.90-5.00) 10*3/uL Monocytes # 0.74 (0.20-1.00) 10*3/uL Eosinophils # 0.18 (0.04-0.35) 10*3/uL Basophils # 0.04 (0.00-0.10) 10*3/uL Sodium 138 (137-145) mmol/L Potassium 3.9 (3.5-5.1) mmol/L Chloride 103 (98-107) mmol/L Carbon Dioxide 25 (22-30) mmol/L Anion Gap 10 mmol/L BUN 10 (9-20) mg/dL Creatinine 0.64 L (0.66-1.25) mg/dL Est GFR (CKD-EPI)AfAm >90 (>60 ml/min/1.73 sqM) Est GFR (CKD-EPI)NonAf >90 (>60 ml/min/1.73 sqM) Glucose 110 H (74-99) mg/dL Plasma Lactic Acid Nish 1.0 (0.7-2.0) mmol/L Calcium 9.4 (8.4-10.2) mg/dL Total Bilirubin 0.5 (0.2-1.3) mg/dL AST 26 (17-59) U/L ALT 23 (4-49) U/L Alkaline Phosphatase 121 (38-126) U/L C-Reactive Protein 1.6 H (<1.0) mg/dL Total Protein 6.6 (6.3-8.2) g/dL Albumin 4.1 (3.5-5.0) g/dL Disposition Clinical Impression: Abdominal wall abscess, Nicotine dependence Disposition: HOME SELF-CARE Instructions (If sedation given, give patient instructions): Abscess Incision and Drainage (ED), Abscess (ED) Additional Instructions: Return to the emergency department with any new, worsening, or concerning symptoms. Stop the antibiotic you are currently on and begin taking the new antibiotics as prescribed for 10 days. Alternate with ibuprofen and Tylenol as needed for pain relief. Apply warm compresses. Contact the general surgery offices listed below for a follow-up appointment. Prescriptions: Sulfamethox-Tmp 800-160Mg [Bactrim DS 800-160 mg] 1 tab PO Q12HR 10 Days #20 tab Cephalexin [Keflex] 500 mg PO Q6HR 10 Days #40 cap Ibuprofen [Motrin] 800 mg PO Q8H PRN #30 tab PRN Reason: Pain Is patient prescribed a controlled substance at d/c from ED?: No Referrals: None,Stated [Primary Care Provider] - 1-2 days Armaan Molina MD [STAFF PHYSICIAN] - 1-2 days Forms: PH Area PCPs Time of Disposition: 08:08
[2024-08-08] MEDS: LACTATED RINGERS 1,000 ML IV SCH (07:00)
[2024-08-08] MEDS: KETOROLAC 15 MG/ML 1 ML VIAL IVP STA (07:01)
[2024-08-08] MEDS: LIDOCAINE 1%-EPI 1:100,000 20 ML VIAL SQ STA (07:01)
[2024-08-08 07:20] LABS: Basophils # (A) 0.04 10*3/uL (0.00-0.10); Basophils % (A) 0.7 %; Eosinophils # (A) 0.18 10*3/uL (0.04-0.35); HCT 43.3 % (39.6-50.0); HGB 15.2 g/dL (13.0-17.0); Lymphocytes # (A) 1.69 10*3/uL (0.90-5.00); Lymphocytes % (A) 27.7 %; MCH 33.4 pg (27.0-32.0); MCHC 35.1 g/dL (32.0-37.0); MCV 95.2 fL (80.0-97.0); Mean Platelet Volume 9.8 fL (9.5-12.2); Monocytes # (A) 0.74 10*3/uL (0.20-1.00); Monocytes % (A) 12.1 %; Neutrophils # (A) 3.43 10*3/uL (1.80-7.70); Neutrophils % (A) 56.2 %; Platelet Count 197 10*3/uL (140-440); RBC 4.55 10*6/uL (4.40-5.60)
[2024-08-08 07:37] LABS: ALT 23 U/L (4-49); AST 26 U/L (17-59); African American GFR (CKD) >90 (>60 ml/min/1.73 sqM); Albumin 4.1 g/dL (3.5-5.0); Alkaline Phosphatase 121 U/L (38-126); Anion Gap 10 mmol/L; Blood Urea Nitrogen 10 mg/dL (9-20); C Reactive Protein 1.6 mg/dL (<1.0); Calcium 9.4 mg/dL (8.4-10.2); Carbon Dioxide 25 mmol/L (22-30); Chloride 103 mmol/L (98-107); Glucose 110 mg/dL (74-99); Non-African American GFR(CKD) >90 (>60 ml/min/1.73 sqM); Potassium 3.9 mmol/L (3.5-5.1); Sodium 138 mmol/L (137-145); Total Bilirubin 0.5 mg/dL (0.2-1.3); Total Protein 6.6 g/dL (6.3-8.2)
[2024-08-08] MEDS: HYDROmorphone 0.5 MG/0.5 ML SYRINGE IVP STA (07:41)
[2024-08-08] MEDS: traMADol 50 MG STARTER PACK 3 TAB BTL PO STA (08:13)
[2024-08-08 08:57] VITALS: BP 156/88; PULSE 74; RESP 20
== END 2024-08-08 08:57 | disposition home or self-care (01) ==
LOC: EC 06:33
DX: L02.211 Cutaneous abscess of abdominal wall (principal); F17.200 Nicotine dependence, unspecified, uncomplicated; Z88.0 Allergy status to penicillin; Z88.5 Allergy status to narcotic agent; Z88.8 Allergy status to other drugs, medicaments and biological substances
CPT/HCPCS: 36415; 80053; 83605; 85025; 86140; 87070; 87205; 87075; 10060; 99283; 96374; 96375 ×2; 96361; J3360; J1885; J1171

== ENCOUNTER 2024-09-15 00:18 | Emergency (ER) | payer OTHER ==
[2024-09-15 00:24] VITALS: RESP 18
[2024-09-15] MEDS: diphenhydrAMINE 50 MG/ML 1 ML VIAL IM STA (00:54)
[2024-09-15] MEDS: FAMOTIDINE 20 MG TAB PO STA (00:54)
[2024-09-15] MEDS: methylPREDNISolone SOD SUCCI 125 MG/2 ML VIAL IM ONE (00:54)
--- NOTE | 2024-09-15 00:54 | ED ---
General Adult HPI - General Chief complaint: Skin/Abscess/Foreign Body Stated complaint: Rash on right arm and neck Time Seen by Provider: 09/15/24 00:26 Source: patient Mode of arrival: ambulatory Limitations: no limitations - History of Present Illness Initial comments: 49-year-old male here with chief complaint of rash. Patient has a red, pruritic, and painful rash on his right antecubital fossa, suprapubic region, and left side of his neck. Has been present for 3 to 4 days. He reports that he tried topical Benadryl and [id number] topical steroids on the area which has not improved. 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 He denies any new food, medication, soap, lotion, detergent, fabric softener, or other topical products. Denies any possible contact induced dermatitis, such as a tool belt for work. No fever. No difficulty breathing or swallowing. It does weep at times. - Related Data Previous Rx's Medication Instructions Recorded Albuterol Inhaler [Ventolin Hfa 1 - 2 puff INHALATION Q4-6H PRN #1 08/28/14 Inhaler] inhaler predniSONE 50 mg PO DAILY #5 tab 08/28/14 Clotrimazole/Betamethasone Dip 1 applic TOPICAL Q12HR 7 Days #1 05/11/18 [Lotrisone Cream] bottle diphenhydrAMINE [Benadryl] 50 mg PO TID PRN #20 capsule 06/03/18 Cephalexin [Keflex] 500 mg PO Q6HR 5 Days #20 cap 08/13/19 Ciprofloxacin HCl 500 mg PO BID 5 Days #10 tab 08/13/19 Sulfamethox-Tmp 800-160Mg [Bactrim 1 each PO Q12HR 5 Days #10 tab 07/24/21 Ds] Cephalexin [Keflex] 500 mg PO Q6HR 10 Days #40 cap 08/08/24 Ibuprofen [Motrin] 800 mg PO Q8H PRN #30 tab 08/08/24 Sulfamethox-Tmp 800-160Mg [Bactrim 1 tab PO Q12HR 10 Days #20 tab 08/08/24 DS 800-160 mg] Hydrocortisone Cream 1 applic TOPICAL BID #28 gm 09/15/24 [Hydrocortisone 2.5% Cream] methylPREDNISolone Dose Pack 4 mg PO DIRECTED #1 packet 09/15/24 [Medrol Dose Pack] Allergies Allergy/AdvReac Type Severity Reaction Status Date / Time acetaminophen [From Vicodin] Allergy Rash/Hives Verified 09/15/24 00:24 amoxicillin Allergy Rash/Hives Verified 09/15/24 00:24 hydrocodone bitartrate Allergy Rash/Hives Verified 09/15/24 00:24 [From Vicodin] Penicillins Allergy Rash/Hives Verified 09/15/24 00:24 Review of Systems ROS Statement: Those systems with pertinent positive or pertinent negative responses have been documented in the HPI. ROS Other: All systems not noted in ROS Statement are negative. Past Medical History Past Medical History: No Reported History History of Any Multi-Drug Resistant Organisms: MRSA Date of last positivie culture/infection: 08/08/24 MDRO Source:: abdomen, left axilla Past Surgical History: No Surgical Hx Reported Past Psychological History: No Psychological Hx Reported Smoking Status: Current every day smoker Past Alcohol Use History: Occasional Past Drug Use History: None Reported General Exam Limitations: no limitations General appearance: alert, in no apparent distress Head exam: Present: atraumatic, normocephalic, normal inspection Eye exam: Present: normal appearance, EOMI Neck exam: Absent: meningismus Respiratory exam: Absent: respiratory distress, stridor Cardiovascular Exam: Present: regular rate Neurological exam: Present: alert, oriented X3 Psychiatric exam: Present: normal affect, normal mood Skin exam: Present: rash (Erythematous and pruritic rash on the right antecubital fossa, suprapubic region, and left-sided neck) Course Vital Signs 09/15/24 00:21 Temperature 97.8 F Pulse Rate 83 Respiratory 18 Rate Blood Pressure 150/91 O2 Sat by Pulse 97 Oximetry Medical Decision Making - Medical Decision Making Was pt. sent in by a medical professional or institution (, PA, OPEN SOAPER TENDER, urgent care, hospital, or long-term...) When possible be specific @ -No Did you speak to anyone other than the patient for history (EMS, parent, family, police, friend...)? What history was obtained from this source @ -No Did you review nursing and triage notes (agree or disagree)? Why? @ -I reviewed and agree with nursing and triage notes Were old charts reviewed (outside hosp., previous admission, EMS record, old EKG, old radiological studies, urgent care reports/EKG's, long-term records)? Report findings @ -No old charts were reviewed Differential Diagnosis (chest pain, altered mental status, abdominal pain women, abdominal pain men, vaginal bleeding, weakness, fever, dyspnea, syncope, headache, dizziness, GI bleed, back pain, seizure, CVA, palpatations, mental health, musculoskeletal)? @ -Differential includes contact dermatitis, urticaria, anaphylaxis, poison pamela, shingles, not an all-inclusive list EKG interpreted by me (3pts min.). @ -As above X-rays interpreted by me (1pt min.). @ -None done CT interpreted by me (1pt min.). @ -None done U/S interpreted by me (1pt. min.). @ -None done What testing was considered but not performed or refused? (CT, X-rays, U/S, labs)? Why? @ -None What meds were considered but not given or refused? Why? @ -None Did you discuss the management of the patient with other professionals (professionals i.e. , PA, OPEN SOAPER TENDER, lab, RT, psych nurse, social media analyst, regional sales coordinator, teacher, air antisubmarine officer, director of casework department)? Give summary @ -No Was smoking cessation discussed for >3mins.? @ -No Was critical care preformed (if so, how long)? @ -No Were there social determinants of health that impacted care today? How? (Homelessness, low income, unemployed, alcoholism, drug addiction, transportation, low edu. Level, literacy, decrease access to med. care, group home, rehab)? @ -No Was there de-escalation of care discussed even if they declined (Discuss DNR or withdrawal of care, Hospice)? DNR status @ -No What co-morbidities impacted this encounter? (DM, HTN, Smoking, COPD, CAD, Cancer, CVA, ARF, Chemo, Hep., AIDS, mental health diagnosis, sleep apnea, morbid obesity)? @ -None Was patient admitted / discharged? Hospital course, mention meds given and route, prescriptions, significant lab abnormalities, going to OR and other pertinent info. @ -49-year-old male presented chief complaint of rash. Patient treated with Solu-Medrol, Benadryl, Pepcid. Be provided with Medrol Dosepak and topical steroid for home. Follow-up with PCP. Report back to ER with any new or worsening symptoms. Discussed return parameters and answered all questions. Patient conveyed verbal understanding and agreed to the plan. I discussed this case in detail with my attending Dr. Fleming Undiagnosed new problem with uncertain prognosis? @ -No Drug Therapy requiring intensive monitoring for toxicity (Heparin, Nitro, Insu young, Cardizem)? @ -No Were any procedures done? @ -No Diagnosis/symptom? @ -Rash Acute, or Chronic, or Acute on Chronic? @ -Acute Uncomplicated (without systemic symptoms) or Complicated (systemic symptoms)? @ -Uncomplicated Side effects of treatment? @ -No Exacerbation, Progression, or Severe Exacerbation? @ -No Poses a threat to life or bodily function? How? (Chest pain, [place], [place], pneumonia, PE, COPD, DKA, ARF, appy, cholecystitis, CVA, Diverticulitis, Homicidal, Suicidal, threat to staff... and all critical care pts) @ -Unlikely Disposition Clinical Impression: Rash Disposition: HOME SELF-CARE Condition: Good Instructions (If sedation given, give patient instructions): Acute Rash (ED) Additional Instructions: Follow-up with PCP. Report back to ER with any new or worsening symptoms. Prescriptions: Hydrocortisone Cream [Hydrocortisone 2.5% Cream] 1 applic TOPICAL BID #28 gm methylPREDNISolone Dose Pack [Medrol Dose Pack] 4 mg PO DIRECTED #1 packet Is patient prescribed a controlled substance at d/c from ED?: No Referrals: None,Stated [Primary Care Provider] - 1-2 days Time of Disposition: 00:53
[2024-09-15 00:58] VITALS: BP 144/81; PULSE 79; TEMP 97.7
== END 2024-09-15 01:07 | disposition home or self-care (01) ==
LOC: EC 00:18
DX: R21 Rash and other nonspecific skin eruption (principal); F17.200 Nicotine dependence, unspecified, uncomplicated; Z88.0 Allergy status to penicillin; Z88.5 Allergy status to narcotic agent
CPT/HCPCS: 99282; 96372; J1200; J2919

== ENCOUNTER 2024-09-22 00:17 | Emergency (ER) | payer OTHER ==
[2024-09-22 00:27] VITALS: RESP 16
--- NOTE | 2024-09-22 00:58 | ED ---
Skin/Abscess/FB HPI - General Chief complaint: Skin/Abscess/Foreign Body Stated complaint: Rash, Bump on Stomach Time Seen by Provider: 09/22/24 00:58 Source: patient, RN notes reviewed, old records reviewed Mode of arrival: ambulatory Limitations: no limitations - History of Present Illness Initial comments: 49 male presented to ER for evaluation of abdominal abscess. Patient reports he was seen here in July for similar complaint. Patient underwent I&D and was discharged on antibiotics. Patient followed up with general surgery, he is u nsure exactly which 1 who advised him continue antibiotics. He reports over the past couple of days he has noticed a red erythematous rash to lower abdomen, belt line. He is concerned abscess has returned. He does report a history of MRSA. He denies any abdominal pain, urinary complaints, diarrhea/constipation, fevers, chills. Nondiabetic. Patient also reports a red rash to right antecubital fossa and left neck. Patient was also evaluated here and discharged on oral and topical steroids. - Related Data Previous Rx's Medication Instructions Recorded Albuterol Inhaler [Ventolin Hfa 1 - 2 puff INHALATION Q4-6H PRN #1 08/28/14 Inhaler] inhaler predniSONE 50 mg PO DAILY #5 tab 08/28/14 Clotrimazole/Betamethasone Dip 1 applic TOPICAL Q12HR 7 Days #1 05/11/18 [Lotrisone Cream] bottle diphenhydrAMINE [Benadryl] 50 mg PO TID PRN #20 capsule 06/03/18 Cephalexin [Keflex] 500 mg PO Q6HR 5 Days #20 cap 08/13/19 Ciprofloxacin HCl 500 mg PO BID 5 Days #10 tab 08/13/19 Sulfamethox-Tmp 800-160Mg [Bactrim 1 each PO Q12HR 5 Days #10 tab 07/24/21 Ds] Cephalexin [Keflex] 500 mg PO Q6HR 10 Days #40 cap 08/08/24 Ibuprofen [Motrin] 800 mg PO Q8H PRN #30 tab 08/08/24 Sulfamethox-Tmp 800-160Mg [Bactrim 1 tab PO Q12HR 10 Days #20 tab 08/08/24 DS 800-160 mg] Hydrocortisone Cream 1 applic TOPICAL BID #28 gm 09/15/24 [Hydrocortisone 2.5% Cream] methylPREDNISolone Dose Pack 4 mg PO DIRECTED #1 packet 09/15/24 [Medrol Dose Pack] Doxycycline [Vibramycin] 100 mg PO BID #20 capsule 09/22/24 Allergies Allergy/AdvReac Type Severity Reaction Status Date / Time acetaminophen [From Vicodin] Allergy Rash/Hives Verified 09/15/24 00:24 amoxicillin Allergy Rash/Hives Verified 09/15/24 00:24 hydrocodone bitartrate Allergy Rash/Hives Verified 09/15/24 00:24 [From Vicodin] Penicillins Allergy Rash/Hives Verified 09/15/24 00:24 Review of Systems ROS Statement: Those systems with pertinent positive or pertinent negative responses have been documented in the HPI. ROS Other: All systems not noted in ROS Statement are negative. Past Medical History Past Medical History: No Reported History Additional Past Medical History / Comment(s): MRSA History of Any Multi-Drug Resistant Organisms: MRSA Date of last positivie culture/infection: 08/08/24 MDRO Source:: abdomen, left axilla Past Surgical History: No Surgical Hx Reported Past Psychological History: No Psychological Hx Reported Smoking Status: Current every day smoker Past Alcohol Use History: Occasional Past Drug Use History: None Reported General Exam Limitations: no limitations General appearance: alert, in no apparent distress Respiratory exam: Present: normal lung sounds bilaterally. Absent: respiratory distress, wheezes, rales, rhonchi, stridor Cardiovascular Exam: Present: regular rate, normal rhythm, normal heart sounds. Absent: systolic murmur, diastolic murmur, rubs, gallop, clicks GI/Abdominal exam: Present: soft, normal bowel sounds. Absent: distended, tenderness, guarding, rebound, rigid Extremities exam: Present: normal inspection, full ROM, normal capillary refill. Absent: tenderness, pedal edema, joint swelling, calf tenderness Neurological exam: Present: alert, oriented X3, CN II-XII intact Skin exam: Present: warm, dry, intact, normal color, other (There is a 2 cm hard nodule to lower midline abdomen with overlying erythema. No purulent drainage. Mild tenderness to touch.). Absent: rash Course Vital Signs 09/22/24 09/22/24 00:22 01:47 Temperature 98.1 F 97.9 F Pulse Rate 89 78 Respiratory 16 16 Rate Blood Pressure 132/85 128/79 O2 Sat by Pulse 98 99 Oximetry Medical Decision Making - Medical Decision Making Was pt. sent in by a medical professional or institution (, NATALYA, ACADEMIC COORDINATOR, urgent care, hospital, or fci...) When possible be specific @ -No Did you speak to anyone other than the patient for history (EMS, parent, family, police, friend...)? What history was obtained from this source @ -No Did you review nursing and triage notes (agree or disagree)? Why? @ -I reviewed and agree with nursing and triage notes Were old charts reviewed (outside hosp., previous admission, EMS record, old EKG, old radiological studies, urgent care reports/EKG's, fci records)? Report findings @ -I [place] [id number]. Patient evaluated for abdominal abscess. I&D was completed at that time as purulent drainage was noted and patient discharged on clindamycin instructed to follow-up with general surgery. Differential Diagnosis (chest pain, altered mental status, abdominal pain women, abdominal pain men, vaginal bleeding, weakness, fever, dyspnea, syncope, headache, dizziness, GI bleed, back pain, seizure, CVA, palpatations, mental health, musculoskeletal)? @ -Cellulitis, abscess, hernia, cyst, rash... This list is not meant to be all- inclusive EKG interpreted by me (3pts min.). @ -None done X-rays interpreted by me (1pt min.). @ -None done CT interpreted by me (1pt min.). @ -None done U/S interpreted by me (1pt. min.). @ -None done What testing was considered but not performed or refused? (CT, X-rays, U/S, labs)? Why? @ -None What meds were considered but not given or refused? Why? @ -None Did you discuss the management of the patient with other professionals (professionals i.e. , NATALYA, ACADEMIC COORDINATOR, lab, RT, psych nurse, social service worker, compensation associate, teacher, tourist information officer, wrapper caser)? Give summary @ -No Was smoking cessation discussed for >3mins.? @ -No Was critical care preformed (if so, how long)? @ -No Were there social determinants of health that impacted care today? How? (Homelessness, low income, unemployed, alcoholism, drug addiction, transportation, low edu. Level, literacy, decrease access to med. care, correction, rehab)? @ -No Was there de-escalation of care discussed even if they declined (Discuss DNR or withdrawal of care, Hospice)? DNR status @ -No What co-morbidities impacted this encounter? (DM, HTN, Smoking, COPD, CAD, Cancer, CVA, ARF, Chemo, Hep., AIDS, mental health diagnosis, sleep apnea, morbid obesity)? @ -History of MRSA Was patient admitted / discharged? Hospital course, mention meds given and route, prescriptions, significant lab abnormalities, going to OR and other pertinent info. @ -Discharge. 49-year male presented to ER for evaluation of abdominal abscess. Vital signs stable. Exam remarkable for 2 cm hard nodule to lower midline abdomen with overlying erythema. There is no purulent drainage or fluctuance noted. No focal abdominal tenderness. Findings concerning of developing abscess given no fluctuance or purulent drainage I&D deferred at this time. Patient will be prescribed doxycycline and advised to follow-up closely with general surgery for further evaluation. First dose provided in the emergency department. Strict return parameters discussed. Patient discharged in stable condition. Patient verbally expressed understanding and agreement with care plan. Case discussed with ED attending, Dr. Gresham Undiagnosed new problem with uncertain prognosis? @ -No Drug Therapy requiring intensive monitoring for toxicity (Heparin, Nitro, Insulin, Cardizem)? @ -No Were any procedures done? @ -No Diagnosis/symptom? @ -Abdominal wall lesion/ r/o developing abscess Acute, or Chronic, or Acute on Chronic? @ -Acute Uncomplicated (without systemic symptoms) or Complicated (systemic symptoms)? @ -Uncomplicated Side effects of treatment? @ -No Exacerbation, Progression, or Severe Exacerbation? @ -No Poses a threat to life or bodily function? How? (Chest pain, [place], [place], pneumonia, PE, COPD, DKA, ARF, appy, cholecystitis, CVA, Diverticulitis, Homicidal, Suicidal, threat to staff... and all critical care pts) @ -No Disposition Clinical Impression: Abdominal wall abscess Disposition: HOME SELF-CARE Condition: Stable Instructions (If sedation given, give patient instructions): Abscess (ED) Additional Instructions: Follow-up closely with general surgery. Take antibiotics as prescribed. Return to the ER for any new or worsening concerns. Prescriptions: Doxycycline [Vibramycin] 100 mg PO BID #20 capsule Is patient prescribed a controlled substance at d/c from ED?: No Referrals: None,Stated [Primary Care Provider] - 1-2 days Armaan Molina MD [STAFF PHYSICIAN] - 1-2 days Ino Valdez DO [Doctor of Osteopathic Medicine] - 1-2 days Time of Disposition: 01:24
[2024-09-22] MEDS: CLINDAMYCIN 150 MG CAP PO STA (01:38)
[2024-09-22] MEDS: DOXYCYCLINE 100 MG TABLET PO ONE (01:44)
[2024-09-22 01:48] VITALS: BP 128/79; PULSE 78; TEMP 97.9
== END 2024-09-22 01:48 | disposition home or self-care (01) ==
LOC: EC 00:17
DX: L02.211 Cutaneous abscess of abdominal wall (principal); Z86.14 Personal history of Methicillin resistant Staphylococcus aureus infection; F17.200 Nicotine dependence, unspecified, uncomplicated; Z88.0 Allergy status to penicillin; Z88.5 Allergy status to narcotic agent; Z88.8 Allergy status to other drugs, medicaments and biological substances
CPT/HCPCS: 10060; 99282